=== PATIENT | female | born 2000 | race Caucasian/White ===

== ENCOUNTER → 2024-05-16 | Outpatient (REF) | payer OTHER | LOC: M LABDRAWP 17:22 | PROVIDERS: ATTEND Advanced Practice Midwife | DX: O20.0 Threatened abortion (principal); Z3A.00 Weeks of gestation of pregnancy not specified ==

== ENCOUNTER → 2024-05-18 | Outpatient (CLI) | payer OTHER | LOC: M PLALAB 16:28 | PROVIDERS: ATTEND Advanced Practice Midwife | DX: O20.0 Threatened abortion (principal) ==

== ENCOUNTER → 2024-06-12 | Outpatient (CLI) | payer OTHER | LOC: M PLALAB 08:33 | PROVIDERS: ATTEND Advanced Practice Midwife | DX: O20.9 Hemorrhage in early pregnancy, unspecified (principal) ==

== ENCOUNTER → 2024-06-19 | Outpatient (CLI) | payer OTHER | LOC: M PLALAB 15:29 | PROVIDERS: ATTEND Advanced Practice Midwife | DX: O02.1 Missed abortion (principal) ==

== ENCOUNTER → 2025-05-24 | Outpatient (REF) | payer OTHER | LOC: M PLALAB 14:31 | PROVIDERS: ATTEND Advanced Practice Midwife | DX: Z53.9 Procedure and treatment not carried out, unspecified reason (principal); Z34.81 Encounter for supervision of other normal pregnancy, first trimester ==

== ENCOUNTER → 2025-06-05 | Outpatient (CLI) | payer OTHER ==
[2025-06-05 17:33] LABS: PLATELET COUNT, AUTOMATED 376 10^3/uL (150-450)
[2025-06-05 18:25] LABS: HIV 1&2 SCREEN NEGATIVE (NEGATIVE)
[2025-06-05 18:33] LABS: HEPATITIS C VIRUS ABY INDEX 0.17 INDEX (<0.8)
[2025-06-05 18:34] LABS: Trichomonas vaginalis (AMP) NOT DETECTED (NEGATIVE)
[2025-06-05 18:57] LABS: GC DNA AMPLIFICATION NEGATIVE (NEGATIVE)
== END ==
LOC: M PLALAB 14:41
PROVIDERS: ATTEND Advanced Practice Midwife
DX: Z34.81 Encounter for supervision of other normal pregnancy, first trimester (principal)

== ENCOUNTER → 2025-08-08 | Outpatient (CLI) | payer OTHER | LOC: M WHC 14:50 | PROVIDERS: ATTEND Advanced Practice Midwife | DX: Z36.89 Encounter for other specified antenatal screening (principal); Z3A.20 20 weeks gestation of pregnancy ==

== ENCOUNTER → 2025-08-19 | Outpatient (REF) | payer OTHER | LOC: M SFHCWAGY 09:54 | PROVIDERS: ATTEND Obstetrics & Gynecology | DX: Z34.80 Encounter for supervision of other normal pregnancy, unspecified trimester (principal) ==